=== PATIENT | male | born 1990 | race Caucasian/White ===

== ENCOUNTER 2021-03-14 11:43 | Inpatient (IN) | payer OTHER ==
[~2021-03-14] VITALS: Ht 177.8 cm; Wt 70.8 kg
[2021-03-14] MEDS ORDERED: VANCOMYCIN IV 1,000 MG in IV DEXTROSE 5% 250 ML IV ONE (12:00)
[2021-03-14] MEDS ORDERED: PIPERACILLIN SODIUM/TAZOBACTAM 3.375 G in IV DEXTROSE 5% 50 ML IV ONE (12:00)
[2021-03-14] MEDS ORDERED: IV NORMAL SALINE 1000 ML BAG IV ONE ×2 (12:00→14:15)
[2021-03-14] MEDS ORDERED: ACETAMINOPHEN ES 500 MG TABLET PO ONE (12:00)
--- NOTE | 2021-03-14 12:00 | NUR ---
Received pt 30 yrs male came from [facility] for elveted temp and HR PT HX PNA AND ON TRETMENT ORALE HX HD with old trach ,esrd and last hd was 03/13/21 temp 101f with multible decubetes in both lower extramity and secrale arae
--- NOTE | 2021-03-14 12:03 | NUR ---
` at bed side sptic work order blood drow and blood culurre x 2 done
--- NOTE | 2021-03-14 12:30 | NUR ---
CONTINUE MONITER VS SBP 90MMHG
[2021-03-14] MEDS ORDERED: ACETAMINOPHEN ES 500 MG TABLET ONE (12:46)
[2021-03-14] MEDS ORDERED: PIPERACILLIN/TAZOBACTAM/D5W 50 ML IV ONE (12:47)
[2021-03-14] MEDS ORDERED: VANCOMYCIN IV 200 ML ONE (12:47)
[2021-03-14] MEDS ORDERED: PROSTAT SUGAR FREE PO (12:48)
[2021-03-14] MEDS ORDERED: RIVA10TA PO (12:48)
[2021-03-14] MEDS ORDERED: SERT50TA PO (12:48)
[2021-03-14] MEDS ORDERED: METH-815 PO (12:48)
[2021-03-14] MEDS ORDERED: EPOE40007 SUBCUT (12:48)
[2021-03-14] MEDS ORDERED: OMEP40CA21 PO (12:48)
[2021-03-14] MEDS ORDERED: FERR325T23 PO (12:48)
[2021-03-14] MEDS ORDERED: MELA5TAB PO (12:48)
[2021-03-14] MEDS ORDERED: GABA-532 PO (12:48)
[2021-03-14] MEDS ORDERED: LEVO50TA PO (12:48)
[2021-03-14] MEDS ORDERED: ONDA4TAB5 PO (12:48)
[2021-03-14] MEDS ORDERED: DOCU100C36 PO (12:48)
[2021-03-14] MEDS ORDERED: ASCO125T PO (12:48)
[2021-03-14] MEDS ORDERED: SIME120L PO (12:48)
[2021-03-14] MEDS ORDERED: BACL10TA PO (12:48)
[2021-03-14] MEDS ORDERED: MIDO5TAB5 PO (12:48)
[2021-03-14] MEDS ORDERED: BISA10SU61 RC (12:48)
[2021-03-14] MEDS ORDERED: HYDR2TAB4 PO (12:48)
[2021-03-14] MEDS ORDERED: CALC667T6 PO (12:48)
[2021-03-14] MEDS ORDERED: ZINC1POW MC (12:48)
[2021-03-14] MEDS ORDERED: LEVO500T90 PO (12:48)
[2021-03-14] MEDS ORDERED: FOLI0.8T2 PO (12:48)
[2021-03-14] MEDS ORDERED: ASCO500C18 PO (12:48)
[2021-03-14 12:51] LABS: CREATININE 3.9 mg/dL (0.6-1.3); POTASSIUM 4.4 mmol/L (3.5-5.1)
[2021-03-14 12:55] LABS: BILIRUBIN,DIRECT 0.2 mg/dL (0.0-0.2); BILIRUBIN,TOTAL 0.5 mg/dL (0.2-1.0); TOTAL PROTEIN, SERUM 6.4 g/dL (6.4-8.2)
[2021-03-14 12:58] LABS: HEMATOCRIT 33.3 % (36.7-47.1); MEAN CORPUSCULAR HEMOGLOBIN 28.8 uug (23.8-33.4); MEAN CORPUSCULAR VOLUME 88.1 fL (73.0-96.2); PLATELET COUNT (AUTO) 115 K/uL (152-348)
--- NOTE | 2021-03-14 13:00 | NUR ---
pt condition unstable DR. MENDEZ aware ivf ns 1l infused and patent on lt for arm ivbp slow infused zosyn 3.375 gm contenue moniter
--- NOTE | 2021-03-14 14:00 | NUR ---
vancomycin 1gm ivbp infused slowly bp on77/42mmhg pt hx of low bp pt fully awake and alert fallow commend
[2021-03-14] MEDS ORDERED: DEXAMETHASONE SOD PHOSPHATE 4 MG INJ IV ONE (15:30)
--- NOTE | 2021-03-14 15:30 | NUR ---
2 nd liter of ns sterted and patent DR MENDEZ aware bp 78/44mmhg pt awake and alert DECADRON 10MG IVP given contenue closly moniter bp
[2021-03-14] MEDS ORDERED: DEXAMETHASONE SOD PHOSPHATE 10 MG INJ ONE (15:51)
[2021-03-14 15:54] VITALS: BP 81/43
--- NOTE | 2021-03-14 16:09 | NUR ---
bp 81/41mmgh hr 69b/min pt awake and alert fallow comend genralized weekness
--- NOTE | 2021-03-14 16:42 | NUR ---
PT ASLEEPY BP 78/39MMHG plan of care insertion of picc line and admit to icu
--- NOTE | 2021-03-14 17:35 | NUR ---
pt condition vs unstable 92/54mmhg pt refused to inserted picc line closly moniter vs pt awake and alert
[2021-03-14] MEDS ORDERED: BISACODYL 10 MG SUPP.RECT RC PRN (18:15)
[2021-03-14] MEDS ORDERED: HYDROMORPHONE HCL 2 MG TABLET PO PRN (18:15)
[2021-03-14] MEDS ORDERED: ALBUTEROL SULFATE 1.25 MG/3 ML NEBU NEB PRN (18:30)
[2021-03-14] MEDS ORDERED: ACETAMINOPHEN 325 MG TABLET PO PRN (18:30)
[2021-03-14] MEDS ORDERED: NOREPINEPHRINE BITARTRATE 8 MG in IV NORMAL SALINE 242 ML IV PRN (18:30)
[2021-03-14] MEDS ORDERED: ONDANSETRON 4 MG/2 ML VIAL IV PRN (18:30)
--- NOTE | 2021-03-14 18:40 | NUR ---
pt refused PICC line insertion plan to ADMIT TO ICU KAILEY STATES HAND OFF TO MALINDA RN [id number] ROOM 1 BP 84/56MMHG HR 84B/MIN rr 18 and temp 98.5f
[2021-03-14 18:46] LABS: *BILIRUBIN,URIN NEGATIVE (NEGATIVE); *BLOOD, URINE 1+ (NEGATIVE); *COLOR,URINE YELLOW (YELLOW); *KETONES,URINE NEGATIVE (NEGATIVE); *UROBILINOGEN,URINE 0.2 E.U./dl (NORMAL); LEUKOCYTE ESTERASE ,URINE 2+ (NEGATIVE); NITRITE, URINE NEGATIVE (NEGATIVE); UGLUCOSE NEGATIVE (NEGATIVE)
[2021-03-14] MEDS ORDERED: PIPERACILLIN/TAZOBACTAM/D5W 50 ML ONE (18:57)
[2021-03-14 19:03] LABS: *CLARITY,URINE SLIGHTLY CLOUDY (CLEAR); WBC,URINE 50-80 /HPF (0-3)
[2021-03-14 19:04] LABS: BACTERIA,URINE FEW /HPF (NONE SEEN); CALCIUM OXALATE CRYSTALS,UR FEW /HPF (NONE SEEN); SQUAMOUS EPITHELIAL CELL,UR FEW /HPF (NONE SEEN)
[2021-03-14] MEDS: PIPERACILLIN/TAZO 2.25 G in IV DEXTROSE 5% 50 ML IV SCH (19:11)
--- NOTE | 2021-03-14 19:23 | NUR ---
DR RAYMUNDO spook with pt about INSERTION OF PICC LINE bp 88/60mmhg PT agree concent was sign by pt fully understood
--- NOTE | 2021-03-14 19:26 | NUR ---
PICC LINE NURSE AT BED SIDE FOR INSERTEtion
--- NOTE | 2021-03-14 19:35 | NUR ---
HAND OFF TO DARIEL ERICKSON
[2021-03-14] MEDS ORDERED: BACLOFEN 10 MG TABLET PO SCH (20:00)
[2021-03-14 20:45] VITALS: BP 98/70
--- NOTE | 2021-03-14 20:45 | NUR ---
Received report from [facility]. Patient was transported from ED and admitted to CCU-1. Patient is awake, A/Ox4, denies pain at this time. No signs of acute distress noted. On NC @ 2LPM, O2 sat 98%; RUC permacath for HD; KELLY PICC line and left FA patent and flushed. Body assessment done. Patient refused his wounds to be assessed. Explained to patient the importance of wound assessment and that photos need to be taken as per hospital protocol. Patient adamantly refused his wounds to be check and mentioned, "I want the wound nurse to check it for me. The dressings was changed recently in my senior living." Pipe Cleaning Machine Operator made aware. Belongings list checked and belongings at bedside. Bed at lowest position, brakes on, bed alarm on, siderails x2. Call light within reach. Will continue to monitor closely.
--- NOTE | 2021-03-14 20:49 | NUR ---
sent the patient to ccu 1, , awake oriented , on room air , cell phone and ham trimmer sent with the patient
[2021-03-14 21:00] VITALS: BP 99/56
--- NOTE | 2021-03-14 21:00 | NUR ---
Seen and examined by Padmini MARQUIS with new orders, blood culture x 2 at [facility] on dialysis. Noted and carried out.
[2021-03-14 22:00] VITALS: BP 95/48
[2021-03-14] MEDS: GABAPENTIN 100 MG CAPSULE PO SCH (22:21)
[2021-03-14] MEDS: DOCUSATE SODIUM 100 MG CAPSULE PO SCH (22:23)
[2021-03-14] MEDS: METHADONE HCL 10 MG TABLET PO SCH (22:23)
[2021-03-14] MEDS: NYSTATIN SUSPENSION 5 ML LIQUID UDC PO SCH (22:23)
[2021-03-14] MEDS ORDERED: MELATONIN 3 MG TABLET ONE (22:47)
[2021-03-14] MEDS: MELATONIN 3 MG TABLET PO SCH (22:49)
[2021-03-14 23:00] VITALS: BP 93/52
[2021-03-15] VITALS (12 sets, daily range): BP systolic 95–109; BP diastolic 52–73
--- NOTE | 2021-03-15 | NUR ---
No significant change of condition noted. Will continue to monitor closely. Patient requested for Dilaudid and stated, "My legs are in pain." Medication given as ordered. No signs of distress noted.
[2021-03-15] MEDS: HYDROMORPHONE 1 MG/1 ML DISP.SYRIN IV PRN ×4 (00:07→20:29)
[2021-03-15] MEDS ORDERED: PIPERACILLIN/TAZOBACTAM/D5W 50 ML ONE (01:04)
[2021-03-15] MEDS ORDERED: IV NS 1000 ML 1,000 ML IV PRN (02:00)
--- NOTE | 2021-03-15 03:00 | NUR ---
Patient had a large soft brown BM x 1. Patient was cleaned and was offered bed bath, however, patient adamantly refused to be bath. Patient consented to take photos of his wounds except for the one with dressings. Photos taken and placed on chart. Will endorsed to AM RN shift.
--- NOTE | 2021-03-15 04:15 | NUR ---
Patient requested for Dilaudid again and stated, "The pain is still there." Medication given as ordered. No signs of distress noted.
[2021-03-15] MEDS: PIPERACILLIN/TAZO 2.25 G in IV DEXTROSE 5% 50 ML IV SCH (04:27)
[2021-03-15 05:12] LABS: HEMATOCRIT 35.3 % (36.7-47.1); MEAN CORPUSCULAR HEMOGLOBIN 28.5 uug (23.8-33.4); MEAN CORPUSCULAR VOLUME 88.4 fL (73.0-96.2); PLATELET COUNT (AUTO) 96 K/uL (152-348)
[2021-03-15 05:31] LABS: THYROID STIMULATING HORMONE 0.523 mIU/mL (0.358-3.740)
[2021-03-15 05:34] LABS: BILIRUBIN,TOTAL 0.4 mg/dL (0.2-1.0); CREATININE 4.2 mg/dL (0.6-1.3); PHOSPHOROUS 4.4 mg/dL (2.5-4.9); POTASSIUM 4.8 mmol/L (3.5-5.1); TOTAL PROTEIN, SERUM 6.9 g/dL (6.4-8.2); VANCOMYCIN,RANDOM 18.7 ug/mL (18.0-26.0)
[2021-03-15] MEDS: METHADONE HCL 10 MG TABLET PO SCH ×3 (06:13→21:58)
--- NOTE | 2021-03-15 06:20 | NUR ---
Patient is awake, resting comfortably. A/Ox4. No signs of distress noted. KELLY PICC patent with ongoing NS @ [facility] permacath for HD. VSS. Will endorsed to AM RN shift regarding patient's wounds and continuity of care.
[2021-03-15] MEDS: PANTOPRAZOLE SODIUM 40 MG TABLET.DR PO SCH (06:40)
[2021-03-15] MEDS: LEVOTHYROXINE SODIUM 50 MCG TABLET PO SCH (06:40)
--- NOTE | 2021-03-15 07:30 | NUR ---
Received pt in bed resting, pt a/ox4, clear speech. Pt has a capped trach in place, c/o fever of 103, afebrile now at 98.0. pt saturating at 97% on 2LO2 via NC. multiple wound on L E, photo taken and in chart. Pt NSR on bedside monitor. R upper arm PICC patent and intact. will continue to monitor
--- NOTE | 2021-03-15 07:35 | NUR ---
Reported critical labs to Dr. Santos Platelets 96, Procalcitonin 14.18, BNP [id number].
[2021-03-15] MEDS: SERTRALINE HCL 50 MG TABLET PO SCH (08:01)
[2021-03-15] MEDS: DOCUSATE SODIUM 100 MG CAPSULE PO SCH ×2 (08:01→17:12)
[2021-03-15] MEDS: CALCIUM ACETATE 667 MG CAP/TAB PO SCH ×3 (08:01→17:12)
[2021-03-15] MEDS: NYSTATIN SUSPENSION 5 ML LIQUID UDC PO SCH ×4 (08:02→20:16)
[2021-03-15] MEDS: FOLIC ACID/VITAMIN B COMP W-C TABLET PO SCH (08:02)
[2021-03-15] MEDS: MIDODRINE HCL 5 MG TABLET PO SCH ×2 (08:02→17:12)
[2021-03-15] MEDS: GABAPENTIN 100 MG CAPSULE PO SCH ×2 (08:02→20:13)
[2021-03-15] MEDS: PROTEIN SUPPLEMENT (PROSTAT) 30 ML LIQUID PO SCH ×3 (08:08→17:13)
[2021-03-15] MEDS: ASCORBIC ACID 250 MG TABLET PO SCH (08:12)
[2021-03-15] MEDS: FERROUS SULFATE 325 MG TABEC PO SCH (08:12)
[2021-03-15] MEDS ORDERED: RIVAROXABAN 10 MG TABLET PO SCH (09:00)
[2021-03-15 10:06] LABS: LYMPHOCYTES % (MANUAL) 16 % (20-40); MONOCYTES % (MANUAL) 1 % (2-10); NEUTROPHILS % (MANUAL) 83 % (42-75)
[2021-03-15] MEDS ORDERED: GENTAMICIN SULFATE INJ 140 MG in IV DEXTROSE 5% 100 ML IV ONE (11:00)
[2021-03-15] MEDS ORDERED: GENTAMICIN SULFATE INJ 500 MG in IV DEXTROSE 5% 250 ML IV SCH (14:00)
--- NOTE | 2021-03-15 18:30 | NUR ---
pt transferred to tele floor with all belongings and chart, pt a/ox4, saturating well on 2L NC, air mattress arrived, pt VSS, pt went via gursonido with RN and METAL ENGINEERING PROCESS WORKER.
--- NOTE | 2021-03-15 19:30 | NUR ---
RECEIVED PT AWAKE, ALERT AND ORIENTEDX4. PT ON 2L NASAL CANNULA. IV INTACT. PT ON FIRST STEP MATTRESS. PT CAN MAKE HIS NEEDS KNOWN. SAFETY AND COMFORT PROVIDED. WILL CONTINUE TO MONITOR.
[2021-03-15] MEDS: MELATONIN 3 MG TABLET PO SCH (20:13)
--- NOTE | 2021-03-15 21:30 | NUR ---
PT REFUSED HIS NYSTATIN MEDICATION.
--- NOTE | 2021-03-15 22:30 | NUR ---
PT GIVEN DILAUDID 0.5MG AT 2028H FOR PAIN. PT TOLERATED IT WELL.AFTER AN HOUR PT STATED PAIN SUBSIDED . SAFETY AND COMFORT PROVIDED. WILL CONTINUE TO MONITOR.
[2021-03-16 04:22] VITALS: BP 94/61
[2021-03-16] MEDS: LEVOTHYROXINE SODIUM 50 MCG TABLET PO SCH (06:06)
[2021-03-16] MEDS: PANTOPRAZOLE SODIUM 40 MG TABLET.DR PO SCH (06:06)
[2021-03-16] MEDS: METHADONE HCL 10 MG TABLET PO SCH ×3 (06:06→21:04)
--- NOTE | 2021-03-16 06:09 | NUR ---
PT SLEPT COMFORTABLY. PT IN NO ACUTE DISTRESS. PRESCRIBED MEDICATION GIVEN AND PT TOLERATED IT WELL. PT TURNED AND REPOSITIONED. WOUND DRESSING CHANGED. PT STABLE. VITAL SIGNS WITHIN NORMAL LIMIT. SAFETY AND COMFORT PROVIDED. WILL ENDORSE TO INCOMING NURSE FOR CONTINUITY OF CARE.
[2021-03-16 06:44] LABS: MEAN CORPUSCULAR HEMOGLOBIN 28.3 uug (23.8-33.4); MEAN CORPUSCULAR VOLUME 89.2 fL (73.0-96.2); PLATELET COUNT (AUTO) 119 K/uL (152-348)
[2021-03-16] MEDS ORDERED: GENTAMICIN SULFATE INJ 70 MG in IV DEXTROSE 5% 50 ML IV PRN (06:45)
[2021-03-16] MEDS ORDERED: VANCOMYCIN IV 500 MG in IV DEXTROSE 5% 100 ML IV PRN (06:45)
[2021-03-16 07:01] LABS: MAGNESIUM 2.2 mg/dL (1.8-2.4); POTASSIUM 4.3 mmol/L (3.5-5.1)
--- NOTE | 2021-03-16 07:30 | NUR ---
AWAKE ALERT AND ORIENTED WITH TRACH PLUGGED NO SOB NO RESP DISTRESS AT THIS TIME DAIJA CATH RIGHT CHEST AREA IS INTACT MID LINE REMAINS INTACT DENIES PAIN OR DISCOMFORTS CALL LIGHTS AND PERSONAL BELONGINGS ARE WITHIN EASY REACH MADE COMFORTABLE NOT IN DISTRESS AT THIS TIME.
[2021-03-16] MEDS: NYSTATIN SUSPENSION 5 ML LIQUID UDC PO SCH ×4 (09:00→21:00)
[2021-03-16] MEDS: FERROUS SULFATE 325 MG TABEC PO SCH (09:28)
[2021-03-16] MEDS: CALCIUM ACETATE 667 MG CAP/TAB PO SCH ×3 (09:28→17:31)
[2021-03-16] MEDS: GABAPENTIN 100 MG CAPSULE PO SCH ×2 (09:28→20:53)
[2021-03-16] MEDS: ASCORBIC ACID 250 MG TABLET PO SCH (09:28)
[2021-03-16] MEDS: SERTRALINE HCL 50 MG TABLET PO SCH (09:29)
[2021-03-16] MEDS: DOCUSATE SODIUM 100 MG CAPSULE PO SCH ×2 (09:29→17:30)
[2021-03-16] MEDS: MIDODRINE HCL 5 MG TABLET PO SCH ×2 (09:29→17:31)
[2021-03-16] MEDS: FOLIC ACID/VITAMIN B COMP W-C TABLET PO SCH (09:30)
[2021-03-16] MEDS: PROTEIN SUPPLEMENT (PROSTAT) 30 ML LIQUID PO SCH ×3 (09:39→17:31)
--- NOTE | 2021-03-16 11:06 | NUR ---
PATIENT SEEN AND EXAMINED BY DR RODRIGUEZ WITH NEW ORDERS AND NOTED.
[2021-03-16 12:00] VITALS: BP 105/67
--- NOTE | 2021-03-16 15:47 | NUR ---
RECEIVED A CALL FROM [facility] PATIENT IS MRSA POSITIVE BOTH NARES DR SANCHES NOTIFIED WITH NO NEW ORDERS AT THIS TIME.
[2021-03-16 16:18] VITALS: BP 98/61
--- NOTE | 2021-03-16 17:00 | NUR ---
[facility] HERE AND DID DEBRIDEMENT ON PATIENTS SACRAL WOUND AND DOCUMENTED.
[2021-03-16] MEDS: HYDROMORPHONE 1 MG/1 ML DISP.SYRIN IV PRN ×2 (18:17→22:37)
--- NOTE | 2021-03-16 18:17 | NUR ---
PATIENT C/O HAS GENERALISED PAIN MEDICATED WITH DILAUDID ORDERED MADE COMFORTABLE WILL OBSERVE.
--- NOTE | 2021-03-16 18:30 | NUR ---
POSITIVE BLOOD CULTERS PRE LAB CALLED TO TO LIV WITH NO NEW ORDERS AT THIS TIME
[2021-03-16 20:18] VITALS: BP 96/61
[2021-03-16] MEDS: MELATONIN 3 MG TABLET PO SCH (20:53)
--- NOTE | 2021-03-16 23:53 | NUR ---
Received patient lying in bed. AAOX4. In no acute distress. Denies any pain at this time. No SOB. Dialysis cath on right upper chest area intact. PICC line on right upper arm intact and patent. Wound on both lower extremities with dressing dry, clean and intact. Needs assessed and attended to. Safety measure initiated and call dick within reached.
[2021-03-17 00:06] VITALS: BP 107/70
[2021-03-17 04:24] VITALS: BP 102/65
[2021-03-17] MEDS: HYDROMORPHONE 1 MG/1 ML DISP.SYRIN IV PRN ×2 (04:31→20:34)
--- NOTE | 2021-03-17 05:25 | NUR ---
AAOX4. In no acute distress. Dilaudid 1mg via IV given for complain of pain and effective. NSR on tele with HR of 64/min. Dialysis cath on right upper chest area with dressing intact. PICC line on right upper arm intact and patent. Dressing change to wound on both lower extremities per patient request. Needs attended to and met. Safety measure maintained and call dick within reached.
[2021-03-17] MEDS: PANTOPRAZOLE SODIUM 40 MG TABLET.DR PO SCH (06:13)
[2021-03-17] MEDS: METHADONE HCL 10 MG TABLET PO SCH ×3 (06:13→23:31)
[2021-03-17] MEDS: LEVOTHYROXINE SODIUM 50 MCG TABLET PO SCH (06:13)
[2021-03-17 06:40] LABS: HEMATOCRIT 35.9 % (36.7-47.1); MEAN CORPUSCULAR HEMOGLOBIN 28.7 uug (23.8-33.4); MEAN CORPUSCULAR VOLUME 89.3 fL (73.0-96.2); PLATELET COUNT (AUTO) 150 K/uL (152-348)
[2021-03-17 06:53] LABS: CREATININE 3.9 mg/dL (0.6-1.3); GENTAMICIN,RANDOM 1.6 ug/mL (4.0-8.0); MAGNESIUM 2.1 mg/dL (1.8-2.4); PHOSPHOROUS 4.1 mg/dL (2.5-4.9); POTASSIUM 4.5 mmol/L (3.5-5.1); VANCOMYCIN,RANDOM 10.2 ug/mL (18.0-26.0)
[2021-03-17] MEDS: FERROUS SULFATE 325 MG TABEC PO SCH (08:41)
[2021-03-17] MEDS: SERTRALINE HCL 50 MG TABLET PO SCH (08:41)
[2021-03-17] MEDS: DOCUSATE SODIUM 100 MG CAPSULE PO SCH ×2 (08:41→16:55)
[2021-03-17] MEDS: CALCIUM ACETATE 667 MG CAP/TAB PO SCH ×3 (08:41→16:54)
[2021-03-17] MEDS: ASCORBIC ACID 250 MG TABLET PO SCH (08:41)
[2021-03-17] MEDS: GABAPENTIN 100 MG CAPSULE PO SCH ×2 (08:41→20:34)
[2021-03-17] MEDS: FOLIC ACID/VITAMIN B COMP W-C TABLET PO SCH (08:41)
[2021-03-17] MEDS: MUPIROCIN 2% OINT 22 GM TUBE NS SCH ×2 (08:42→20:35)
[2021-03-17] MEDS: MIDODRINE HCL 5 MG TABLET PO SCH ×2 (08:42→16:55)
[2021-03-17] MEDS: PROTEIN SUPPLEMENT (PROSTAT) 30 ML LIQUID PO SCH ×3 (08:56→16:55)
[2021-03-17] MEDS: NYSTATIN SUSPENSION 5 ML LIQUID UDC PO SCH ×4 (08:57→20:35)
--- NOTE | 2021-03-17 09:00 | NUR ---
RECEIVED PATIENT IN BED AWAKE ALERT AND ORIENTED DENIES PAIN OR DISCOMFORTS AT THIS TIME.PERMA CATH REMAINS INTACT AT THIS TIME PICC LINE TO HIS RIGHT ARM IS INTACT WITH NO S/S OF INFILTERATION AT THIS TIME.CALL LIGHTS AND PERSONAL BELONGINGS ARE WITHIN EASY REACH WILL CONTINUE TO OBSERVE.
--- NOTE | 2021-03-17 12:10 | NUR ---
WOUND CARE CONSULT: PT FOLLOWED BY SURGICAL AND PODIATRY TEAMS FOR MULTIPLE WOUNDS, PRESENT ON ADMISSION. DEFER TO SURGICAL TEAMS FOR WOUND TREATMENT PLAN. DISCUSSED SKIN PROTECTION WITH NURSING STAFF. MD IN AGREEMENT WITH PLAN OF CARE. PT IS ON FIRST STEP [facility].
[2021-03-17] MEDS ORDERED: Z GUARD REMEDY PASTE 57 GM TUBE TOP PRN (12:15)
[2021-03-17 13:30] VITALS: BP 100/59
--- NOTE | 2021-03-17 14:53 | NUR ---
DIALYSIS IS IN PROGRESS ORDERED MEDICATIONS NOT ADMINISTERED BECAUSE HE HAS NOT HAD LUNCH AND BLOOD PRESSURE IS TRENDING LOW AT THIS TIME.
--- NOTE | 2021-03-17 16:00 | NUR ---
DIALYSIS COMPLETED ORDERED AND ZERO OUTPUT REPORTED PATIENT TOLERATED WELL BLOOD PRESSURE FLUCTUATED AND OKAY AT THIS TIME.
[2021-03-17] MEDS ORDERED: GENTAMICIN SULFATE INJ 70 MG in IV DEXTROSE 5% 50 ML IV ONE (17:00)
[2021-03-17] MEDS ORDERED: IV NS 1000 ML 1,000 ML IV ONE (17:00)
[2021-03-17] MEDS ORDERED: VANCOMYCIN IV 1,000 MG in IV DEXTROSE 5% 250 ML IV ONE (18:00)
--- NOTE | 2021-03-17 19:00 | NUR ---
VANCOMICIN IS IN PROGRESS ORDERED VIA PICC LINE WITH NO ADVERSE OR ALLERGIC REACTIONS AT THIS TIME WILL CONTINUE TO OBSERVE.
--- NOTE | 2021-03-17 19:45 | NUR ---
DELISA x4, able to make needs known. Patient complains of pain 11/25 to BLE, requests dilaudid IV with PM meds passs. In on RA, no c/o of SOB. Addendum: 03/17/21 at 2143 by LUISITO GUERRERO RN Right upper arm PICC line in place, site is clean and dry and intact. rigth chest Candido cath intact. Portex Trach clean and intact. Safety measures initiated. Needs assessed and met. Call light within reach.
[2021-03-17] MEDS: MELATONIN 3 MG TABLET PO SCH (20:34)
[2021-03-17] MEDS: Z GUARD REMEDY PASTE 57 GM TUBE TOP SCH (20:35)
[2021-03-17 20:45] VITALS: BP 96/55
[2021-03-17] MEDS ORDERED: MUPIROCIN 2% OINT 22 GM TUBE NS SCH (21:00)
[2021-03-18 04:45] VITALS: BP 92/47
[2021-03-18] MEDS: METHADONE HCL 10 MG TABLET PO SCH ×3 (06:01→22:10)
[2021-03-18] MEDS: LEVOTHYROXINE SODIUM 50 MCG TABLET PO SCH (06:01)
[2021-03-18] MEDS: PANTOPRAZOLE SODIUM 40 MG TABLET.DR PO SCH (06:01)
--- NOTE | 2021-03-18 06:55 | NUR ---
Patient remained stable for this shift. No significant events. Slept well. Call light within reach.
--- NOTE | 2021-03-18 07:15 | NUR ---
Received patient asleep in bed. On room air. No signs of acute distress. Call light within reach. Bed alarm on for safety. Will continue to monitor.
[2021-03-18] MEDS: DOCUSATE SODIUM 100 MG CAPSULE PO SCH ×2 (08:21→17:03)
[2021-03-18] MEDS: CALCIUM ACETATE 667 MG CAP/TAB PO SCH ×4 (08:21→17:03)
[2021-03-18] MEDS: ASCORBIC ACID 250 MG TABLET PO SCH (08:21)
[2021-03-18] MEDS: FOLIC ACID/VITAMIN B COMP W-C TABLET PO SCH (08:21)
[2021-03-18] MEDS: FERROUS SULFATE 325 MG TABEC PO SCH (08:21)
[2021-03-18] MEDS: GABAPENTIN 100 MG CAPSULE PO SCH ×2 (08:21→20:36)
[2021-03-18] MEDS: MUPIROCIN 2% OINT 22 GM TUBE NS SCH ×2 (08:25→22:11)
[2021-03-18] MEDS: PROTEIN SUPPLEMENT (PROSTAT) 30 ML LIQUID PO SCH ×3 (08:26→17:03)
[2021-03-18] MEDS: MIDODRINE HCL 5 MG TABLET PO SCH ×2 (08:27→17:00)
[2021-03-18] MEDS: Z GUARD REMEDY PASTE 57 GM TUBE TOP SCH ×2 (08:30→22:12)
[2021-03-18] MEDS: SERTRALINE HCL 50 MG TABLET PO SCH (08:35)
[2021-03-18] MEDS: NYSTATIN SUSPENSION 5 ML LIQUID UDC PO SCH ×4 (08:35→21:00)
[2021-03-18] MEDS: HYDROMORPHONE 1 MG/1 ML DISP.SYRIN IV PRN ×2 (10:14→20:35)
--- NOTE | 2021-03-18 10:20 | NUR ---
Patient complained of bilateral lower extremity pain 11/25. Dilaudid 0.5mg IV PRN given. Vital signs 110/72. On RA. No signs of acute distress. Will continue to monitor.
[2021-03-18 10:55] VITALS: BP 110/72
[2021-03-18] MEDS: MEROPENEM 500 MG in IV NORMAL SALINE 50 ML IV SCH (11:34)
[2021-03-18 15:02] VITALS: BP 100/61
[2021-03-18] MEDS ORDERED: MIDODRINE HCL 5 MG TABLET PO ONE (15:15)
[2021-03-18] MEDS ORDERED: LIDOCAINE HCL 1% 20 ML VIAL IJ ONE (17:30)
[2021-03-18] MEDS: IV NS 1000 ML 1,000 ML IV PRN (19:00)
--- NOTE | 2021-03-18 19:57 | NUR ---
Patient resting in bed. AOx4. On room air. No signs of acute distress. Patient complained of pain, Dilaudid IV PRN given and patient expressed relief. Wound care treatment done as ordered. Needs anticipated and met. Right chest jose carlos catheter removed by Dr. Roy and patient tolerated procedure well. Bed alarm on. Call light within reach. Will endorse to incoming shift for continuity of care.
--- NOTE | 2021-03-18 20:00 | NUR ---
Patient resting in bed on left side. AAO x4, able to make needs known. Patient complains of pain 7/10 to BLE, repositioning attempted but with help. On RA, no c/o of SOB. Portex Trach clean and intact. Right upper arm PICC line in place, site is clean and dry and intact. Safety measures initiated. Needs assessed and met. Call light within reach.
[2021-03-18 20:30] VITALS: BP 136/75
[2021-03-18] MEDS: MELATONIN 3 MG TABLET PO SCH (20:35)
[2021-03-19] MEDS: MEROPENEM 500 MG in IV NORMAL SALINE 50 ML IV SCH ×2 (00:40→12:26)
[2021-03-19] MEDS: HYDROMORPHONE 1 MG/1 ML DISP.SYRIN IV PRN ×5 (01:12→21:25)
[2021-03-19 04:27] VITALS: BP 110/70
[2021-03-19] MEDS: LEVOTHYROXINE SODIUM 50 MCG TABLET PO SCH (06:23)
[2021-03-19] MEDS: PANTOPRAZOLE SODIUM 40 MG TABLET.DR PO SCH (06:23)
[2021-03-19] MEDS: METHADONE HCL 10 MG TABLET PO SCH ×3 (06:29→22:35)
[2021-03-19 06:50] LABS: HEMATOCRIT 34.6 % (36.7-47.1); MEAN CORPUSCULAR HEMOGLOBIN 28.3 uug (23.8-33.4); MEAN CORPUSCULAR VOLUME 88.3 fL (73.0-96.2); PLATELET COUNT (AUTO) 183 K/uL (152-348)
--- NOTE | 2021-03-19 06:54 | NUR ---
Patient slept intermittent this shift, remained stable. C/O stomach ache and BLE pain, Dilaudid is effective for pain this shift. Will endorse to AM shift. No significant events. Call light within reach.
[2021-03-19 07:03] LABS: CREATININE 2.9 mg/dL (0.6-1.3); MAGNESIUM 1.6 mg/dL (1.8-2.4); POTASSIUM 4.4 mmol/L (3.5-5.1)
[2021-03-19] MEDS: SERTRALINE HCL 50 MG TABLET PO SCH (08:22)
[2021-03-19] MEDS: CALCIUM ACETATE 667 MG CAP/TAB PO SCH ×3 (08:22→16:29)
[2021-03-19] MEDS: FOLIC ACID/VITAMIN B COMP W-C TABLET PO SCH (08:22)
[2021-03-19] MEDS: GABAPENTIN 100 MG CAPSULE PO SCH ×2 (08:22→20:07)
[2021-03-19] MEDS: FERROUS SULFATE 325 MG TABEC PO SCH (08:22)
[2021-03-19] MEDS: ASCORBIC ACID 250 MG TABLET PO SCH (08:22)
[2021-03-19] MEDS: DOCUSATE SODIUM 100 MG CAPSULE PO SCH ×2 (08:22→16:29)
[2021-03-19] MEDS: MUPIROCIN 2% OINT 22 GM TUBE NS SCH ×2 (08:48→20:14)
[2021-03-19] MEDS: NYSTATIN SUSPENSION 5 ML LIQUID UDC PO SCH ×4 (08:48→20:14)
[2021-03-19] MEDS: Z GUARD REMEDY PASTE 57 GM TUBE TOP SCH ×2 (08:49→20:13)
[2021-03-19] MEDS: PROTEIN SUPPLEMENT (PROSTAT) 30 ML LIQUID PO SCH ×3 (08:49→17:00)
[2021-03-19] MEDS: MIDODRINE HCL 5 MG TABLET PO SCH ×3 (09:00→16:30)
[2021-03-19] MEDS: IV NS 1000 ML 1,000 ML IV PRN (09:10)
[2021-03-19 11:00] VITALS: BP 115/71
[2021-03-19] MEDS ORDERED: VANCOMYCIN IV 1,000 MG in IV DEXTROSE 5% 250 ML IV ONE (15:00)
[2021-03-19 16:06] VITALS: BP 114/73
[2021-03-19] MEDS: ARGININE/GLUTAMINE/CALCIUM BMB 1 EACH POWD.PACK PO SCH (16:29)
[2021-03-19] MEDS: MAGNESIUM SULFATE/D5W 100 ML IV SCH ×2 (16:34→17:32)
--- NOTE | 2021-03-19 19:30 | NUR ---
AAO x4, able to make needs known. Patient reports stomach pain subsided during AM shift. C/O pain to sacral area, repositioned on left side. On RA, no c/o of SOB. Portex Trach clean and intact. Right upper arm PICC line in place, site is clean and dry and intact. Safety measures initiated. Needs assessed and met. Call light within reach.
--- NOTE | 2021-03-19 19:45 | NUR ---
Patient resting in bed. AAO x4, able to make needs known. Patient complains of pain 5/10 to BLE, request to have Dilaudid when due. On RA, no c/o of SOB. Portex Trach clean and intact. Right upper arm PICC line in place, site is clean and dry and intact and patent. Infusing NS at 75cc/hr. Safety measures initiated. Needs assessed and met. Call light within reach.
[2021-03-19] MEDS: MELATONIN 3 MG TABLET PO SCH (20:08)
[2021-03-19 21:28] VITALS: BP 104/67
[2021-03-20] MEDS: MEROPENEM 500 MG in IV NORMAL SALINE 50 ML IV SCH ×3 (00:14→23:21)
[2021-03-20] MEDS: HYDROMORPHONE 1 MG/1 ML DISP.SYRIN IV PRN ×5 (01:41→20:02)
[2021-03-20 04:45] VITALS: BP 98/64
[2021-03-20] MEDS: PANTOPRAZOLE SODIUM 40 MG TABLET.DR PO SCH (06:11)
[2021-03-20] MEDS: METHADONE HCL 10 MG TABLET PO SCH ×3 (06:11→21:01)
[2021-03-20] MEDS: LEVOTHYROXINE SODIUM 50 MCG TABLET PO SCH (06:11)
[2021-03-20] MEDS: IV NS 1000 ML 1,000 ML IV PRN ×2 (06:43→21:27)
--- NOTE | 2021-03-20 06:55 | NUR ---
Patient sleeping comfortably this shift. Dilaudid IV provided this shift for Sacral pain, effective. On RA, no SOB noted. PICC is intact and patent. Safety measures initiated. Call light within reach.
[2021-03-20 07:06] LABS: HEPATITIS B SURFACE AG Negative (Negative)
[2021-03-20] MEDS: SERTRALINE HCL 50 MG TABLET PO SCH (08:10)
[2021-03-20] MEDS: FOLIC ACID/VITAMIN B COMP W-C TABLET PO SCH (08:10)
[2021-03-20] MEDS: DOCUSATE SODIUM 100 MG CAPSULE PO SCH ×2 (08:10→16:38)
[2021-03-20] MEDS: FERROUS SULFATE 325 MG TABEC PO SCH (08:10)
[2021-03-20] MEDS: CALCIUM ACETATE 667 MG CAP/TAB PO SCH ×3 (08:10→16:38)
[2021-03-20] MEDS: GABAPENTIN 100 MG CAPSULE PO SCH ×2 (08:10→20:00)
[2021-03-20] MEDS: ASCORBIC ACID 250 MG TABLET PO SCH (08:10)
[2021-03-20] MEDS: MUPIROCIN 2% OINT 22 GM TUBE NS SCH ×2 (08:26→20:06)
[2021-03-20] MEDS: Z GUARD REMEDY PASTE 57 GM TUBE TOP SCH ×2 (08:27→20:07)
[2021-03-20] MEDS: NYSTATIN SUSPENSION 5 ML LIQUID UDC PO SCH ×4 (08:27→20:00)
[2021-03-20] MEDS: ARGININE/GLUTAMINE/CALCIUM BMB 1 EACH POWD.PACK PO SCH ×2 (08:27→16:39)
[2021-03-20] MEDS: PROTEIN SUPPLEMENT (PROSTAT) 30 ML LIQUID PO SCH ×3 (08:27→16:39)
[2021-03-20] MEDS: MIDODRINE HCL 5 MG TABLET PO SCH ×3 (08:29→16:48)
[2021-03-20] MEDS: ACIDOPHILUS/BULGARICUS CHEW TAB PO SCH ×2 (08:55→20:00)
[2021-03-20 11:39] VITALS: BP 113/67
[2021-03-20 16:00] VITALS: BP 113/78
[2021-03-20] MEDS: MELATONIN 3 MG TABLET PO SCH (20:00)
[2021-03-20 21:00] VITALS: BP 114/70
[2021-03-21] MEDS: HYDROMORPHONE 1 MG/1 ML DISP.SYRIN IV PRN ×6 (00:19→23:08)
[2021-03-21 04:51] VITALS: BP 104/63
[2021-03-21] MEDS: METHADONE HCL 10 MG TABLET PO SCH ×3 (05:12→21:30)
[2021-03-21] MEDS: LEVOTHYROXINE SODIUM 50 MCG TABLET PO SCH (06:05)
[2021-03-21] MEDS: PANTOPRAZOLE SODIUM 40 MG TABLET.DR PO SCH (06:05)
[2021-03-21 06:50] LABS: HEMATOCRIT 37.4 % (36.7-47.1); MEAN CORPUSCULAR HEMOGLOBIN 28.7 uug (23.8-33.4); MEAN CORPUSCULAR VOLUME 88.9 fL (73.0-96.2); PLATELET COUNT (AUTO) 291 K/uL (152-348)
[2021-03-21 07:27] LABS: BILIRUBIN,TOTAL 0.3 mg/dL (0.2-1.0); MAGNESIUM 2.1 mg/dL (1.8-2.4); PHOSPHOROUS 4.6 mg/dL (2.5-4.9); POTASSIUM 5.4 mmol/L (3.5-5.1); TOTAL PROTEIN, SERUM 6.9 g/dL (6.4-8.2)
[2021-03-21] MEDS: CALCIUM ACETATE 667 MG CAP/TAB PO SCH ×3 (08:54→17:37)
[2021-03-21] MEDS: SERTRALINE HCL 50 MG TABLET PO SCH (08:54)
[2021-03-21] MEDS: ACIDOPHILUS/BULGARICUS CHEW TAB PO SCH ×2 (08:54→21:29)
[2021-03-21] MEDS: GABAPENTIN 100 MG CAPSULE PO SCH ×2 (08:54→21:29)
[2021-03-21] MEDS: FOLIC ACID/VITAMIN B COMP W-C TABLET PO SCH (08:54)
[2021-03-21] MEDS: FERROUS SULFATE 325 MG TABEC PO SCH (08:55)
[2021-03-21] MEDS: MIDODRINE HCL 5 MG TABLET PO SCH ×3 (08:55→17:00)
[2021-03-21] MEDS: ASCORBIC ACID 250 MG TABLET PO SCH (08:55)
[2021-03-21] MEDS: DOCUSATE SODIUM 100 MG CAPSULE PO SCH ×2 (08:56→17:37)
[2021-03-21] MEDS: NYSTATIN SUSPENSION 5 ML LIQUID UDC PO SCH ×4 (09:00→21:00)
[2021-03-21] MEDS: ARGININE/GLUTAMINE/CALCIUM BMB 1 EACH POWD.PACK PO SCH ×2 (09:00→17:00)
[2021-03-21] MEDS: PROTEIN SUPPLEMENT (PROSTAT) 30 ML LIQUID PO SCH ×3 (09:01→17:38)
[2021-03-21] MEDS: Z GUARD REMEDY PASTE 57 GM TUBE TOP SCH ×2 (09:02→21:31)
[2021-03-21] MEDS: IV NS 1000 ML 1,000 ML IV PRN ×2 (09:31→23:19)
[2021-03-21] MEDS: MUPIROCIN 2% OINT 22 GM TUBE NS SCH ×2 (09:37→21:00)
[2021-03-21 11:45] VITALS: BP 110/70
[2021-03-21] MEDS: MEROPENEM 500 MG in IV NORMAL SALINE 50 ML IV SCH ×2 (12:06→23:09)
[2021-03-21 16:15] VITALS: BP 120/79
--- NOTE | 2021-03-21 19:35 | NUR ---
Received pt resting in bed, AO x4, on room air saturating at 94%, trach intact, PICC line intact and patent, IV hydration running, urinal emptied. No signs of acute distress noted. No complaints at this time. Safety measures initiated, call lights within reach, belongings and urinal placed within reach.
[2021-03-21 20:42] VITALS: BP 123/75
[2021-03-21] MEDS: MELATONIN 3 MG TABLET PO SCH (21:29)
[2021-03-22] MEDS: HYDROMORPHONE 1 MG/1 ML DISP.SYRIN IV PRN ×4 (03:28→21:12)
[2021-03-22 04:45] VITALS: BP 110/66
--- NOTE | 2021-03-22 05:30 | NUR ---
Patient slept throughout the night, AO x 4, on room air saturating at 95%, trach intact, PICC line intact and patent. IV hydration and ATB tolerated well. Vital signs WNL. Pain medication given routinely for pain management per pt's request. No signs of acute distress. No complaints at this time. Call lights within reach, safety measures maintained, belongings placed within reach for easy access. Will endorse to am shift.
[2021-03-22] MEDS: PANTOPRAZOLE SODIUM 40 MG TABLET.DR PO SCH (06:03)
[2021-03-22] MEDS: METHADONE HCL 10 MG TABLET PO SCH ×3 (06:04→21:10)
[2021-03-22] MEDS: LEVOTHYROXINE SODIUM 50 MCG TABLET PO SCH (06:04)
[2021-03-22 08:00] VITALS: BP 110/75
--- NOTE | 2021-03-22 08:00 | NUR ---
Discussed plan of care with pt re: fluid restriction/ prevent overload secondary to pt is a HD pt, pain management, and wound care to be done later at the day. Pt agreeable with the plan of care of the day.
[2021-03-22] MEDS: NYSTATIN SUSPENSION 5 ML LIQUID UDC PO SCH ×4 (09:00→21:00)
[2021-03-22] MEDS: PROTEIN SUPPLEMENT (PROSTAT) 30 ML LIQUID PO SCH ×3 (09:00→17:00)
[2021-03-22] MEDS: ARGININE/GLUTAMINE/CALCIUM BMB 1 EACH POWD.PACK PO SCH ×2 (09:00→17:00)
[2021-03-22] MEDS: SERTRALINE HCL 50 MG TABLET PO SCH (09:05)
[2021-03-22] MEDS: FERROUS SULFATE 325 MG TABEC PO SCH (09:05)
[2021-03-22] MEDS: DOCUSATE SODIUM 100 MG CAPSULE PO SCH ×2 (09:05→18:07)
[2021-03-22] MEDS: ASCORBIC ACID 250 MG TABLET PO SCH (09:05)
[2021-03-22] MEDS: ACIDOPHILUS/BULGARICUS CHEW TAB PO SCH ×2 (09:06→21:10)
[2021-03-22] MEDS: FOLIC ACID/VITAMIN B COMP W-C TABLET PO SCH (09:06)
[2021-03-22] MEDS: CALCIUM ACETATE 667 MG CAP/TAB PO SCH ×3 (09:06→18:07)
[2021-03-22] MEDS: GABAPENTIN 100 MG CAPSULE PO SCH ×2 (09:06→21:10)
[2021-03-22] MEDS: MIDODRINE HCL 5 MG TABLET PO SCH ×3 (09:06→18:08)
[2021-03-22] MEDS: Z GUARD REMEDY PASTE 57 GM TUBE TOP SCH ×2 (09:12→21:11)
[2021-03-22] MEDS: MUPIROCIN 2% OINT 22 GM TUBE NS SCH ×2 (09:13→21:12)
[2021-03-22] MEDS: MEROPENEM 500 MG in IV NORMAL SALINE 50 ML IV SCH (11:17)
[2021-03-22 12:00] VITALS: BP 117/81
--- NOTE | 2021-03-22 12:00 | NUR ---
Offered to soak pt toes blood as ordered per dr florentino pt refused.
[2021-03-22 16:00] VITALS: BP 108/75
--- NOTE | 2021-03-22 17:00 | NUR ---
pt refused to have his dressings changed secondary to pt has family members at bedside.
[2021-03-22 18:05] LABS: CREATININE 4.1 mg/dL (0.6-1.3); POTASSIUM 5.7 mmol/L (3.5-5.1)
--- NOTE | 2021-03-22 18:30 | NUR ---
Consent signed by patient for permacath insertion for tomorrow am. Pt's pain managed with dilaudid. current pain level at 3/5. PT is in no acute distress.
[2021-03-22 20:00] VITALS: BP 133/88
[2021-03-22] MEDS: MELATONIN 3 MG TABLET PO SCH (21:10)
[2021-03-22] MEDS: IV NS 1000 ML 1,000 ML IV PRN (21:21)
--- NOTE | 2021-03-22 22:00 | NUR ---
Dressing changed on right hip wound noted scant serous drainage with granulation around wound site. wound was bright red. right lower later leg wound noted with scant serous drainage with wound site beefy red. Dressing on prior g tube site cleaned no g tube noted - site is closed and covered with dry gauze. wound dressing change on keke upper thighs and keke lower legs changed as ordered by wound care nurse.
[2021-03-23] MEDS: MEROPENEM 500 MG in IV NORMAL SALINE 50 ML IV SCH ×3 (00:23→23:51)
[2021-03-23] MEDS: HYDROMORPHONE 1 MG/1 ML DISP.SYRIN IV PRN ×5 (01:20→20:05)
[2021-03-23 04:00] VITALS: BP 110/62
[2021-03-23] MEDS: METHADONE HCL 10 MG TABLET PO SCH ×3 (06:22→21:03)
[2021-03-23] MEDS: PANTOPRAZOLE SODIUM 40 MG TABLET.DR PO SCH (06:22)
[2021-03-23] MEDS: LEVOTHYROXINE SODIUM 50 MCG TABLET PO SCH (06:22)
--- NOTE | 2021-03-23 07:13 | NUR ---
pt's pain managed with dilaudid. camille blood on picc site per protocol. call light is within reach.
[2021-03-23 07:22] LABS: HEMATOCRIT 34.5 % (36.7-47.1); MEAN CORPUSCULAR HEMOGLOBIN 28.6 uug (23.8-33.4); MEAN CORPUSCULAR VOLUME 88.8 fL (73.0-96.2); PLATELET COUNT (AUTO) 232 K/uL (152-348)
[2021-03-23 07:31] LABS: BILIRUBIN,TOTAL 0.4 mg/dL (0.2-1.0); CREATININE 4.1 mg/dL (0.6-1.3); MAGNESIUM 1.7 mg/dL (1.8-2.4); PHOSPHOROUS 5.1 mg/dL (2.5-4.9); POTASSIUM 4.9 mmol/L (3.5-5.1); TOTAL PROTEIN, SERUM 6.2 g/dL (6.4-8.2); VANCOMYCIN,RANDOM 13.3 ug/mL (18.0-26.0)
[2021-03-23] MEDS: CALCIUM ACETATE 667 MG CAP/TAB PO SCH ×3 (08:00→17:00)
[2021-03-23] MEDS ORDERED: SODIUM POLYSTYRENE SULFONATE 15 G/60 ML LIQUID UDC PO ONE (08:00)
--- NOTE | 2021-03-23 08:04 | NUR ---
Received patient report from warehouse shift supervisor nurse. Patient currently having permacath performed. Will evaluate patient upon return.
[2021-03-23] MEDS ORDERED: IOPAMIDOL 15 ML VIAL IT ONE (08:10)
[2021-03-23] MEDS ORDERED: HEPARIN/NS 500 ML ONE (08:11)
[2021-03-23] MEDS ORDERED: HEPARIN SODIUM,PORCINE 1,000 UNITS/ML VIAL ONE ×3 (08:11→08:53)
[2021-03-23] MEDS ORDERED: HEPARIN SODIUM,PORCINE 5,000 UNITS/ML VIAL ONE (08:11)
[2021-03-23] MEDS ORDERED: LIDOCAINE HCL 2% 20 ML VIAL ONE (08:12)
[2021-03-23] MEDS ORDERED: FENTANYL CITRATE 100 MCG/2 ML AMPUL ONE (08:13)
[2021-03-23 09:59] VITALS: BP 107/67
[2021-03-23 10:29] VITALS: BP 118/70
[2021-03-23] MEDS: MUPIROCIN 2% OINT 22 GM TUBE NS SCH ×2 (11:02→21:04)
[2021-03-23] MEDS: NYSTATIN SUSPENSION 5 ML LIQUID UDC PO SCH ×4 (11:03→20:59)
[2021-03-23] MEDS: ASCORBIC ACID 250 MG TABLET PO SCH (11:03)
[2021-03-23] MEDS: FOLIC ACID/VITAMIN B COMP W-C TABLET PO SCH (11:03)
[2021-03-23] MEDS: GABAPENTIN 100 MG CAPSULE PO SCH ×2 (11:03→20:59)
[2021-03-23] MEDS: SERTRALINE HCL 50 MG TABLET PO SCH (11:04)
[2021-03-23] MEDS: FERROUS SULFATE 325 MG TABEC PO SCH (11:04)
[2021-03-23] MEDS: DOCUSATE SODIUM 100 MG CAPSULE PO SCH ×2 (11:05→17:00)
[2021-03-23] MEDS: Z GUARD REMEDY PASTE 57 GM TUBE TOP SCH ×2 (11:05→21:03)
[2021-03-23] MEDS: MIDODRINE HCL 5 MG TABLET PO SCH ×3 (11:05→17:00)
[2021-03-23] MEDS: ACIDOPHILUS/BULGARICUS CHEW TAB PO SCH ×2 (11:05→20:59)
[2021-03-23] MEDS: ARGININE/GLUTAMINE/CALCIUM BMB 1 EACH POWD.PACK PO SCH ×2 (11:06→17:00)
[2021-03-23] MEDS: PROTEIN SUPPLEMENT (PROSTAT) 30 ML LIQUID PO SCH ×3 (11:09→17:00)
[2021-03-23] MEDS: AMMONIUM LACTATE 12% LOTION 225 GM BOTTLE TP SCH ×3 (11:10→17:00)
--- NOTE | 2021-03-23 15:30 | NUR ---
Dialysis completed. No fluid removed. Patient still able to urinate. BP 108/66, pulse 68.
[2021-03-23 16:00] VITALS: BP 110/71
--- NOTE | 2021-03-23 16:00 | NUR ---
PATIENT UNABLE TO TOLERATE MEDS ORDERED POST-OP. ONLY TOOK ONE DOSE OF ROUTINE MEDS. POST-OP.
[2021-03-23] MEDS ORDERED: VANCOMYCIN IV 1,000 MG in IV DEXTROSE 5% 250 ML IV ONE (17:00)
[2021-03-23 20:00] VITALS: BP 106/68
[2021-03-23] MEDS: MELATONIN 3 MG TABLET PO SCH (21:02)
[2021-03-24] MEDS: HYDROMORPHONE 1 MG/1 ML DISP.SYRIN IV PRN ×4 (00:44→15:39)
[2021-03-24 04:41] VITALS: BP 121/73
[2021-03-24] MEDS: METHADONE HCL 10 MG TABLET PO SCH ×2 (06:34→15:38)
[2021-03-24] MEDS: LEVOTHYROXINE SODIUM 50 MCG TABLET PO SCH (06:34)
[2021-03-24] MEDS: PANTOPRAZOLE SODIUM 40 MG TABLET.DR PO SCH (06:34)
[2021-03-24] MEDS: IV NS 1000 ML 1,000 ML IV PRN ×2 (06:41→06:45)
[2021-03-24 07:51] LABS: CREATININE 3.2 mg/dL (0.6-1.3); POTASSIUM 4.7 mmol/L (3.5-5.1)
[2021-03-24] MEDS: NYSTATIN SUSPENSION 5 ML LIQUID UDC PO SCH ×3 (09:00→12:04)
[2021-03-24] MEDS: Z GUARD REMEDY PASTE 57 GM TUBE TOP SCH (09:41)
[2021-03-24] MEDS: CALCIUM ACETATE 667 MG CAP/TAB PO SCH ×2 (09:43→12:05)
[2021-03-24] MEDS: SERTRALINE HCL 50 MG TABLET PO SCH (09:43)
[2021-03-24] MEDS: FOLIC ACID/VITAMIN B COMP W-C TABLET PO SCH (09:43)
[2021-03-24] MEDS: FERROUS SULFATE 325 MG TABEC PO SCH (09:43)
[2021-03-24] MEDS: ACIDOPHILUS/BULGARICUS CHEW TAB PO SCH (09:43)
[2021-03-24] MEDS: DOCUSATE SODIUM 100 MG CAPSULE PO SCH (09:43)
[2021-03-24] MEDS: ASCORBIC ACID 250 MG TABLET PO SCH (09:43)
[2021-03-24] MEDS: GABAPENTIN 100 MG CAPSULE PO SCH (09:43)
[2021-03-24] MEDS: MIDODRINE HCL 5 MG TABLET PO SCH ×2 (09:49→13:00)
[2021-03-24] MEDS: AMMONIUM LACTATE 12% LOTION 225 GM BOTTLE TP SCH ×2 (09:53→12:08)
[2021-03-24] MEDS: PROTEIN SUPPLEMENT (PROSTAT) 30 ML LIQUID PO SCH ×2 (09:54→12:07)
[2021-03-24] MEDS: ARGININE/GLUTAMINE/CALCIUM BMB 1 EACH POWD.PACK PO SCH (10:14)
[2021-03-24 12:00] VITALS: BP 111/63
[2021-03-24] MEDS: MEROPENEM 500 MG in IV NORMAL SALINE 50 ML IV SCH ×2 (12:06→15:36)
--- NOTE | 2021-03-24 14:00 | NUR ---
Pt had hemodialysis today, vitals post dialysis are 107/67, HR 69. no output was reported, only filtration.
[2021-03-24 16:00] VITALS: BP 125/77
--- NOTE | 2021-03-24 16:50 | NUR ---
Pt refused for wound photos to be taken prior to discharge.
--- NOTE | 2021-03-24 17:29 | NUR ---
Pt is discharged, All discharge information and education given to pt. Pt left at 1700 via ambulance to Center at [facility]. Report given to Gia. All pt information included in discharge packet and given to Ambulance transport personnel to take with pt. Personal belongings at hand. Pt is stable for discharge transfer. MD recommendations reported to facility. No signs of acute distress. Discharge vitals 141/78 saturating 98% on room air, HR 64.
[2021-03-25 15:12] LABS: ALBUMIN 2.5; ALPHA-1-GLOBULIN 0.3; ALPHA-2-GLOBULIN 0.6; BETA GLOBULIN 0.6
[2021-03-25 15:13] LABS: GAMMA GLOBULIN 1.1; GLOBULIN, TOTAL 2.6; M-SPIKE Not Observed
== END 2021-03-24 17:15 | DRG 711 ==
LOC: ER 11:46 → TRANSITION 17:09 → CCU 19:22 → TELE3 03-15 18:37 → MEDSURG3 03-17 10:22
PROVIDERS: ADMIT Internal Medicine; ATTEND Internal Medicine
PROC: 02HV33Z Insertion of Infusion Device into Superior Vena Cava, Percutaneous Approach (ICD-10-PCS; principal; 2021-03-14)
PROC: 0KBP0ZZ Excision of Left Hip Muscle, Open Approach (ICD-10-PCS; 2021-03-16)
PROC: 0KBN0ZZ Excision of Right Hip Muscle, Open Approach (ICD-10-PCS; 2021-03-16)
PROC: 5A1D70Z Performance of Urinary Filtration, Intermittent, Less than 6 Hours Per Day (ICD-10-PCS; 2021-03-17)
PROC: 05PYX3Z Removal of Infusion Device from Upper Vein, External Approach (ICD-10-PCS; 2021-03-18)
PROC: 0HBRXZZ Excision of Toe Nail, External Approach (ICD-10-PCS; 2021-03-19)
PROC: 02H633Z Insertion of Infusion Device into Right Atrium, Percutaneous Approach (ICD-10-PCS; 2021-03-23)
PROC: 5A1D70Z Performance of Urinary Filtration, Intermittent, Less than 6 Hours Per Day (ICD-10-PCS; 2021-03-23)
PROC: B518ZZA Fluoroscopy of Superior Vena Cava, Guidance (ICD-10-PCS; 2021-03-23)
PROC: 0JH63XZ Insertion of Tunneled Vascular Access Device into Chest Subcutaneous Tissue and Fascia, Percutaneous Approach (ICD-10-PCS; 2021-03-23)
PROC: 5A1D70Z Performance of Urinary Filtration, Intermittent, Less than 6 Hours Per Day (ICD-10-PCS; 2021-03-24)
DX: T80.211A Bloodstream infection due to central venous catheter, initial encounter (principal); A41.02 Sepsis due to Methicillin resistant Staphylococcus aureus; J96.01 Acute respiratory failure with hypoxia; R65.21 Severe sepsis with septic shock; J69.0 Pneumonitis due to inhalation of food and vomit; G92.8 Other toxic encephalopathy; E43 Unspecified severe protein-calorie malnutrition; B37.0 Candidal stomatitis; L89.154 Pressure ulcer of sacral region, stage 4; N18.6 End stage renal disease; Z99.2 Dependence on renal dialysis; N39.0 Urinary tract infection, site not specified; B96.20 Unspecified Escherichia coli [E. coli] as the cause of diseases classified elsewhere; D63.1 Anemia in chronic kidney disease; Y84.8 Other medical procedures as the cause of abnormal reaction of the patient, or of later complication, without mention of misadventure at the time of the procedure; D68.59 Other primary thrombophilia; D69.6 Thrombocytopenia, unspecified; E03.9 Hypothyroidism, unspecified; J96.21 Acute and chronic respiratory failure with hypoxia; M89.9 Disorder of bone, unspecified; R53.2 Functional quadriplegia; Z16.12 Extended spectrum beta lactamase (ESBL) resistance; Z20.822 Contact with and (suspected) exposure to COVID-19; Z83.3 Family history of diabetes mellitus; Z86.16 Personal history of COVID-19; Z86.718 Personal history of other venous thrombosis and embolism; Z87.891 Personal history of nicotine dependence; E87.5 Hyperkalemia; F10.21 Alcohol dependence, in remission; Z93.0 Tracheostomy status; K21.9 Gastro-esophageal reflux disease without esophagitis; M24.572 Contracture, left ankle; M24.571 Contracture, right ankle; E83.52 Hypercalcemia; L60.3 Nail dystrophy; S81.802A Unspecified open wound, left lower leg, initial encounter; S81.801A Unspecified open wound, right lower leg, initial encounter; X58.XXXA Exposure to other specified factors, initial encounter; Y93.9 Activity, unspecified; Y92.9 Unspecified place or not applicable
CPT/HCPCS: 36415; 36569; 70030-TC; 71045; 72192; 83550; 83605; 83735; 83970; 84100; 84155; 84165; 84443; 85025; 85730; 86140; 86706; 87040; 87077; 87086; 87340; 93005; 93307; 97161; A4217; A4649; A6209; A9150; G0378; J1100; J1170; J1580; J1644; J2185; J2543; J3010; J3370; J3475; J3490; J7030; J7050; J7060; Q9967